=== PATIENT | female | born 1965 | race Caucasian/White ===

== ENCOUNTER 2021-05-26 07:14 | Emergency (ER) | payer BC, SELFPAY ==
[2021-05-26] VITALS (11 sets, daily range): BP systolic 113–151; BP diastolic 60–91; PULSE 71–98; RESP 12–20; TEMP 36.6; O2SAT 94–100
--- NOTE | ~2021-05-26 | CT_ITS ---
EXAMINATION: CT abdomen pelvis w con INDICATION: Abdominal pain TECHNIQUE: Computed tomographic images of the abdomen and pelvis were obtained after the administrati on of 100 cc of Omnipaque 350 intravenous contrast. The dose-length product (DLP) was 731.59 mGy-cm. Automated exposure control and iterative reconstruction technique were employed. COMPARISON: None available FINDINGS: The lung bases are clear. The heart size is normal. The liver, spleen, pancreas, gallbladde r, and adrenal glands are normal. The kidneys are unremarkable. There are midline skin keiko with a djacent stranding of the subcutaneous fat, consistent with recent surgery. A surgical anastomosis is present in left mid abdomen in the colon. There is a large volume of stool in the rectum. An approxim ately 6.5 x 2.9 cm hyperattenuating fluid collection is present in the presacral space. There is mild inguinal lymphadenopathy. No definite free intraperitoneal gas is identified. There is severe lower cervical spondylosis. IMPRESSION: 1. Postsurgical changes in the abdomen and pelvis with hyperattenuating presacral fluid collection, l ikely postoperative hematoma. 2. Large volume of stool in the rectum. 3. Mild bilateral inguinal lymphadenopathy, likely reactive. Reviewed, dictated and finalized at location A. IMPRESSION: 1. Postsurgical changes in the abdomen and pelvis with hyperattenuating presacr al fluid collection, likely postoperative hematoma. 2. Large volume of stool in the rectum. 3. Mild bilateral inguinal lymphadenopathy, likely reactive.
[2021-05-26] MEDS: diphenhydrAMINE HCl INJ 50 MG/ML VIAL 25 MG IV PUSH (07:51)
[2021-05-26] MEDS: ONDANSETRON INJ 4 MG/2 ML VIAL IV PUSH (07:51)
[2021-05-26] MEDS: methylPREDNISolone SOD SUCC 40 MG VIAL IV PUSH (07:51)
[2021-05-26] MEDS: FAMOTIDINE 20 MG/2 ML VIAL IV PUSH (07:51)
--- NOTE | 2021-05-26 08:16 | ED.GENADULT ---
HPI - General Adult General Chief complaint: Allergic Reaction Stated complaint: Hives Time Seen by Provider: 05/26/21 07:19 Source: patient History of Present Illness HPI narrative: Patient is a 56 y/o female complaining of hives with severe itching starting 3 days ago. She states that her rash is red and all over her body. She states that she has been taking Benadryl and Prednisone, which has not helped much. She has no difficulty with breath. She has poor appetite, nausea/vomiting and abdominal pain due to recent abdominal surgery. Related Data Home Medications Medication Instructions Recorded Confirmed diphenhydramine HCl [Benadryl] 25 mg PO Q6H PRN 05/26/21 prednisone 05/26/21 Allergies Allergy/AdvReac Type Severity Reaction Status Date / Time adhesive tape Allergy Blister Verified 05/26/21 07:23 Review of Systems Constitutional: Constitutional: Denies chills, Denies fever(s), Denies headache(s) and Denies weakness Eyes: Eyes: Denies blurry vision ENT: Denies headache(s) and Denies neck pain Cardiovascular: Cardiovascular: Denies chest pain and Denies dyspnea Respiratory: Respiratory: Denies cough and Denies dyspnea Gastrointestinal: Gastrointestinal: Reports abdominal pain, Denies diarrhea, Reports nausea and Reports vomiting Genitourinary: Genitourinary: Denies hematuria and Denies dysuria Musculoskeletal: Musculoskeletal: Denies back pain and Denies neck pain Integumentary/Breasts: Skin/Breast: Reports rash Neurologic: Denies headache(s) and Denies weakness [facility], [facility] Social History Social History Gender identity (if verbalized by the patient): Female Exam Const: General: no acute distress and well developed Orientation/consciousness: oriented to person, oriented to place, oriented to time and patient oriented x3 HENMT: Head: normocephalic Ears: external ears normal General nose exam: Normal external nose present Eyes: General: appearance normal, both eyes and all related structures Conjunctivae: conjunctivae normal Neck: Neck: normal visual inspection and full ROM Chest: Chest palpation & inspection: normal inspection of the chest and no tenderness Resp: Effort & Inspection: normal respiratory effort Auscultation: clear to auscultation bilaterally Cardio: Rate: regular rate Rhythm: regular rhythm GI: GI Palp: No abdominal tenderness and Yes Soft to palpation Skin: General skin exam: normal color and turgor normal Rashes: rashes noted (diffuse on back, scalpe, all 4 extremities) Wounds: wounds noted (abdominal incisions clean and intact) Neuro: General: oriented to person, oriented to place, oriented to time and patient oriented x3 Cognition (Neuro): normal cognition Extrem: General: normal to inspection, full ROM and no pedal edema Psych: Appearance: grossly normal Mental Status: mental status grossly normal Affect: normal affect Course Reevaluation(s) Reevaluation #1: Rechecked. Patient states that her hives are better. She is able to tolerate oral intake and her nausea is controlled. She feels comfortable with going home. Date: 05/26/21 Time: 13:05 Consultations Consultation #1: Discussed with Dr. Cat (surgery) at [place]. She states that patient can be discharged and follow up surgery clinic. If patient has intractable vomiting, they can transfer patient for admission. Date: 05/26/21 Time: 12:58 Vital Signs Vital signs: Vital Signs Temperature 36.6 C 05/26/21 07:17 Pulse Rate 98 05/26/21 07:17 Respiratory Rate 18 05/26/21 07:17 Blood Pressure 151/91 H 05/26/21 07:17 Pulse Oximetry 98 05/26/21 07:17 Temperature 36.6 C 05/26/21 07:17 Pulse Rate 76 05/26/21 13:32 Respiratory Rate 16 05/26/21 13:32 Blood Pressure 116/60 05/26/21 13:32 Pulse Oximetry 94 05/26/21 13:01 Medical Decision Making Vital Signs Vital Signs: Vital Signs Temperature 36.6 C 05/26/21 07:17 Pulse R
[2021-05-26 08:25] LABS: Basophils Absolute Auto 0.1 K/mm3 (0.0-0.1); Basophils Percent Auto 0.3 % (0.2-1.2); Eosinophils Absolute Auto 0.1 K/mm3 (0-0.3); Eosinophils Percent Auto 0.5 % (0-4.4); Hematocrit 42.4 % (37.0-47.0); Hemoglobin 14.1 g/dL (12.0-15.0); Immature Granulocyte Percent A 0.5 % (0-0.5); Lymphocytes Absolute Auto 1.86 K/mm3 (0.9-3.2); Lymphocytes Percent Auto 8.8 % (18.3-44.2); Mean Corpuscular HGB Conc 33.3 g/dl (32-36); Mean Corpuscular Hemoglobin 29.6 pg (26-34); Mean Corpuscular Volume 89.1 fl (80-100); Mean Platelet Volume 9.4 fl (7.4-10.4); Monocytes Absolute Auto 1.1 K/mm3 (0.1-0.6); Monocytes Percent Auto 5.2 % (2.6-8.5); Neutrophils Absolute Auto 17.9 K/mm3 (1.3-6.7); Neutrophils Percent Auto 84.7 % (45.5-73.1); Platelet Count Result 609 k/mm3 (150-375); Red Blood Count 4.76 M/mm3 (4.2-5.4); Red Cell Distribution Width 13.9 % (11.5-14.5); White Blood Count 21.1 K/mm3 (4.5-10.0)
[2021-05-26 08:41] LABS: Anion Gap 12 mmol/L (8-16); Blood Urea Nitrogen 12 mg/dL (7-17); Calcium 10.7 mg/dL (8.4-10.2); Carbon Dioxide 31 mmol/L (22-30); Chloride 90 mmol/L (98-107); Estimated CRCL calculation 90 ml/min; Estimated Glomerular Filt Rate > 60; Glucose 114 mg/dL (65-110); Sodium 133 mmol/L (137-145)
== END 2021-05-26 13:52 | disposition home or self-care (01) ==
PROVIDERS: Emergency Provider Emergency Medicine; PCP Internal Medicine
DX: L50.9 Urticaria, unspecified (principal); K91.0 Vomiting following gastrointestinal surgery
CPT/HCPCS: 36415; 74177; 80048; 85025; 96374; 96375; 99284; J1200; J2405; J2920; Q9967

== ENCOUNTER 2022-10-08 09:32 | Outpatient (CLI) | payer BC, SELFPAY ==
--- NOTE | ~2022-10-08 | XR_ITS ---
EXAMINATION: XR foot LT min 3V DATE: 10/08/2022 10:09 INDICATION: Left foot pain TECHNIQUE: Dorsoplantar, lateral, and oblique views of the left foot were obtained. COMPARISON: 03/13/2008 FINDINGS: Bone alignment is normal. There is no fracture. There is mild osteoarthritis of multiple in terphalangeal joints. A plantar calcaneal enthesophyte is noted. The soft tissues are unremarkable. IMPRESSION: 1. No acute osseous abnormality. Reviewed, dictated and finalized at location A. E DEGREASER
== END 2022-10-08 09:33 | disposition home or self-care (01) ==
PROVIDERS: PCP Internal Medicine; Visit Provider Podiatrist Foot & Ankle Surgery
DX: M79.672 Pain in left foot (principal)
CPT/HCPCS: 73630

== ENCOUNTER 2023-08-16 09:42 | Outpatient (CLI) | payer OTHER, SELFPAY ==
--- NOTE | ~2023-08-16 | XR_ITS ---
Left Knee Technique: AP, lateral, and sunrise views were obtained. Clinical History: Pain Findings: No fracture or dislocation is seen. Osseous alignment is anatomic. Minimal patellar spurrin g noted. Soft tissues are unremarkable. No joint effusion is seen. Impression: Minimal patellar spurring. Reviewed, dictated and finalized at location . Impression: Minimal patellar spurring.
== END 2023-08-16 09:43 | disposition home or self-care (01) ==
PROVIDERS: PCP Internal Medicine; Visit Provider Internal Medicine
DX: M25.762 Osteophyte, left knee (principal)
CPT/HCPCS: 73564

== ENCOUNTER → 2023-12-17 10:06 | Outpatient (CLI) | payer OTHER, SELFPAY ==
--- NOTE | ~2023-12-17 | XR_ITS ---
Clinical Indication: Cough PA and lateral views of the chest: Comparison: 03/19/2017 Findings: The lungs are clear, without evidence of focal consolidation or pleural effusion. Cardiome diastinal silhouette is within normal limits. Bones and soft tissues are unremarkable. Impression: Normal chest. Reviewed, dictated and finalized at [facility]. LE SLIDE MAKER Impression: Normal chest.
== END ==
PROVIDERS: PCP Nurse Practitioner Family; Visit Provider Nurse Practitioner Family
DX: J45.909 Unspecified asthma, uncomplicated (principal); M19.90 Unspecified osteoarthritis, unspecified site; Z76.89 Persons encountering health services in other specified circumstances
CPT/HCPCS: 71046

== ENCOUNTER 2024-02-28 08:14 | Outpatient (CLI) | payer OTHER, SELFPAY ==
[2024-02-28 09:09] LABS: Cholesterol 190 mg/dL (0-200); HDL Direct 91 mg/dL; Triglycerides 71 mg/dL (<150)
[2024-02-28 09:19] LABS: LDL Cholesterol Direct 77 mg/dL
[2024-02-28 09:33] LABS: Free T4 Free Thyroxine 1.15 ng/mL (0.78-2.19); Vitamin D 25 Hydroxy 54.4 ng/mL
[2024-02-28 10:15] LABS: Erythrocyte Sedimentation Rate 9 mm/hr (0-20)
[2024-02-28 10:16] LABS: Folic Acid 11.7 ng/mL (2.76->20)
[2024-02-29 14:28] LABS: Lyme Disease Ab (IgM), Blot NEGATIVE (NEGATIVE); Lyme Disease Ab(IgG), Blot NEGATIVE (NEGATIVE)
[2024-03-01 12:10] LABS: Collection Sample Venous
[2024-03-01 20:59] LABS: Mercury <5 mcg/L (<OR=10)
[2024-03-02 12:19] LABS: Vitamin B1 14 nmol/L (8-30)
== END 2024-02-28 08:15 | disposition home or self-care (01) ==
LOC: ANHLAB 08:16
PROVIDERS: PCP Nurse Practitioner Family; Visit Provider Nurse Practitioner Family
DX: T56.1X1A Toxic effect of mercury and its compounds, accidental (unintentional), initial encounter (principal); E56.9 Vitamin deficiency, unspecified; G63 Polyneuropathy in diseases classified elsewhere; E61.0 Copper deficiency; Z76.89 Persons encountering health services in other specified circumstances
CPT/HCPCS: 36415; 80061; 82306; 82525; 82607; 82746; 83655; 83735; 83825; 84425; 84439; 84443; 85652; 86617

== ENCOUNTER 2024-04-18 09:58 | Outpatient (CLI) | payer OTHER, SELFPAY ==
--- NOTE | 2024-04-18 13:37 | WPDPFTINT ---
PFT Procedure Performed PFT Procedure Performed Spirometry with Pre/Post Bronchodilator Plethysmography (Lung Vol) Diffusing Cap (DLCO) Flow Vol Loop PFT Interpretation This is a pulmonary function test with pre and post-bronchodilator spirometry, plethysmography and diffusing capacity. The test was performed and results interpreted in accordance with the 2019 and 2005 ATS/ERS Task Force guidelines respectively using the Global Lung Function Initiative-2012 reference equations. Patient demonstrated good effort and cooperation. Reproducibility criteria were met. The quality of the pre bronchodilator spirometry maneuver was Grade A and post bronchodilator spirometry maneuver was Grade A. Findings: Spirometry: The contour the inspiratory and expiratory flow tracing are normal. The pre bronchodilator FVC is 3.42 L, 93% predicted. The pre bronchodilator FEV1 is 2.75 L, 95% predicted. The pre bronchodilator FEV1: FVC ratio is 80%. The post bronchodilator FVC is 3.32 L, representing a 3% decrease. The post bronchodilator FEV1 is 2.81 L, representing a 2% increase. The post bronchodilator FEV1: FVC ratio is 85%. Plethysmography: The total lung capacity is 4.73 L, 83% predicted. The functional residual capacity is 2.28 L, 70% predicted. The residual volume is 1.22 L, 56% predicted. Diffusing capacity: The diffusing capacity unadjusted for hemoglobin and carboxyhemoglobin is 19.6, 84% predicted. The diffusing capacity adjusted for alveolar volume is 4.31, 101% predicted. Impression: The spirometry is normal without evidence of an obstructive abnormality. There is no significant improvement after inhaling a single dose of albuterol. The total lung capacity and functional residual capacity are normal with a decreased residual volume. This is an abnormal but nonspecific lung volume pattern. The diffusing capacity is normal. There are no prior studies for comparison
== END 2024-04-18 09:59 | disposition home or self-care (01) ==
PROVIDERS: PCP Nurse Practitioner Family; Visit Provider Allergy & Immunology
DX: R06.02 Shortness of breath (principal)
CPT/HCPCS: 94060; 94726; 94729

== ENCOUNTER 2025-03-05 07:59 | Outpatient (CLI) | payer OTHER, SELFPAY ==
--- OUTSIDE RECORDS SUMMARY | 2025-03-05 08:03 | XMS_ITS | Referral Summary ---
[facility] Address [address] [place] [address] Care Team Providers Care Coffee Brewer Name Role Phone Jeison Calloway MD Unavailable [phone] Margarito Moreno MD Unavailable [phone] Elaine Nunn DIE CASTING MACHINE OPERATOR Primary Care Provider [phone] Wil Mendez MD Unavailable [phone] Allergies Active Allergy Reactions Criticality Noted Date Comments Adhesive Hives Medium 05/07/2021 No Known Allergies Other (See comments) Low 019 Reaction: Medications acetaminophen (TYLENOL) 500 mg tablet Take 1 tablet (500 mg total) by mouth every 6 (six) hours as needed for pain 30 tablet 4 Active ondansetron ODT (ZOFRAN-ODT) 4 mg disintegrating tablet Take 1 tablet (4 mg total) by mouth every 8 (eight) hours as needed for nausea or vomiting 20 tablet 4 Active Active Problems Problem Noted Date Diagnosed Date SBO (small bowel obstruction) 05/31/2022 Small bowel obstruction 09/17/2019 Overview (09/18/2019): Added automatically from request for surgery [id number] Rectosigmoiditis 05/24/2012 Acute postoperative abdominal pain Immunizations Immunization Administration Dates Next Due Influenza, Quadrivalent, Spl it, Preservative Free, Intramuscular 09/21/2019 Social History Tobacco Use Types Packs/Day Years Used Date Smoking Tobacco: Never Smokeless Tobacco: Never Alcohol Use Standard Drinks/Week Comments Never 0 (1 standard drink = 0.6 oz pur e alcohol) AUDIT-C Answer Date Recorded Q1: How often do you have a drink containing alc ohol? Never 05/14/2021 Average Number of Drinks Not on file 021 Q3: How often do you have si x or more drinks on one occasion? Never 05/14/2021 Personal Safety Answer Date Recorded Have you ever been in or are you currently in a harmful physical or emotional relationship or is someone making you feel afraid or unsafe? Denies 08/17/2024 Comments No Sex and Gender Information Value Date Recorded Sex Assigned at Not on file Legal Sex Female 7:50 PM SLEEP TECH Gender Identity Female 05/08/2021 7:46 PM CDT Sexual Orientation Straight 05/08/2021 7: 56 PM CDT Last Filed Vital Signs Vital Sign Reading Time Taken Comments Blood Pressure 120/75 08/20/2024 9:19 AM CDT Pulse 78 08/20/2024 9:19 AM CDT Temperature 36.3 C (97.4 F) 08/20/2024 9:19 AM CDT Respiratory Rate 17 08/20/2024 9:19 AM CDT Oxygen Saturation 99% 08/20/2024 9:19 AM CDT Inhaled Oxygen Concentration - - Weight 95.3 kg (210 lb) 08/17/2024 11:15 AM CDT Height 170.2 cm (5' 7 ) 08/17/2024 11:15 AM CDT Body Mass Index 32.89 08/17/2024 11:15 AM CDT Plan of Treatment Not on file Insurance ROBBIE THOMAS PREFERRED ANTHEM ACCESS CHOICE ANTHEM ACCESS [employer] [facility] [employer] Advance Directives For more information, please contact: [phone] * Full Code (Latest Code Status on File) Date Activated Date Inactivated Comments 08/17/2024 8:56 AM 08/20/2024 2:22 PM * Full Code Date Activated Date Inactivated Comments 05/31/2022 12:49 PM 06/02/2022 2:35 PM * Full Code Date Activated Date Inactivated Comments 05/31/2022 7:02 AM 05/31/2022 12:49 PM * Full Code Date Activated Date Inactivated Comments 05/14/2021 9:41 PM 05/23/2021 3:23 PM * Full Code Date Activated Date Inactivated Comments 09/17/2019 4:41 PM 09/21/2019 4:14 PM Care Teams Coffee Brewer Relationship Specialty Start Date End Date Elaine Nunn NP [address] [place] [address] PCP - General Nurse Practitioner 08/17/24 Jeison Calloway MD [facility] 10/31/19 Margarito Moreno MD [address] [facility] [id number] [place] [address] Consulting Physician General Surgery 06/02/22 Wil Mendez MD [address] [facility] [phone] [place] [address] Consulting Physician Colon and Rectal Surgery 08/20/24
--- OUTSIDE RECORDS SUMMARY | 2025-03-05 08:03 | XMS_ITS | Data Portability ---
Author Organization [place] [facility] [employer], Main Office Address [address] [place] [address] Care Team Providers Care [facility] Stocker Name Role Phone AMANDASUSIEIN Primary Care Provider AMANDASUSIEIN Referring Provider [phone] Assessment Encounter Date Assessment Date Assessment LastModified by Organization Details LastModified Time 08/27/2023 08/27/2023 HPI: Is a 58-year-old female came in today for evaluation of her left knee pain. Twelve days ago she was going down some steps at home when she felt a pain and a pop type sensation in the anterior aspect of the knee. Knee became very sore after this. She had difficult time with stairs. She also had give-way episodes at times because of the knee. She has been taking ibuprofen 600 mg daily, she has done this long-term because of low back problems. Her symptoms at this point have improved quite a bit. Her pain at worst right now is a 3/10. She is able go up and down the steps 1 after the other now. She has been using an esck-zsu-hmzqsxh knee sleeve which she feels helps quite a bit as well. Patient had x-rays done from her primary care doctor at [facility]. I reviewed the images which show some very mild medial compartment osteoarthritis. Minimal patellofemoral changes. Physical exam: 58-year-old female she is 5 ft 7 and 218 lb she walks well without limp. She has a mild effusion in the left knee. Range of motion is from 0-135 degrees. Hip range of motion is full without discomfort. Mild tenderness over the mid medial joint line no posterior medial joint line tenderness. No tenderness over the lateral joint line. Mild to moderate pain with patellofemoral grind. She has normal quad strength and bulk. No edema in lower extremity. 2+ posterior artery pulse palpable. Impression: 58-year-old female who had anterior knee pain in the left knee. Symptoms are quickly improving. She does have some early osteoarthritis in the medial compartment but does not notice any symptoms in this area except when I am palpating it. Is only 12 days ago when she had this experience and started improved dramatically and I think it will continue to do this. She can continue with the xdgi-kaf-ybwlhhx knee sleeve on an as-needed basis. I did recommend she take the ibuprofen twice a day for the next week or 2 to try to quiet things down more. If her symptoms do not improve or if they worsen she will call otherwise we can see her back as needed. Not available 08/27/2023 13:13:28 10/06/2023 10/06/2023 HPI: Patient returns. I saw her a little more than a month ago for pain in the left knee. The time she had predominantly anterior knee pain with mild medial joint line tenderness to. She has been seeing a chiropractor and knee anterior aspect of the knee is doing better however the medial aspect is not. She has been taking ibuprofen 800 mg regularly for over 3 months. The chiropractor gave her a cortisone injection 6 days ago in the knee. Did improve her symptoms but has not taken all of them away. Patient has pain when she is standing and walking for on her feet for extended periods of time. She is having no symptoms of locking or catching in the knee. Physical exam: 58-year-old female alert pleasant. She is 5 ft 7 218 lb BMI is 34.1. She states she has gained 60 lb over the last several years. She has mild effusion in the left knee. Range of motion is from 0-135 degrees. There is moderate tenderness over the medial and posterior medial joint line. There is moderate pain with Radha's testing negative snapping clicking with Radha's. There is no pain with patellofemoral grind. No lateral joint line tenderness. Hip range motion is full without discomfort. She walks well without limp. Negative Brien's. Impression: 58-year-old female has mild medial compartment osteoarthritis on the x-rays. She has had continued symptoms for several months. She has not improved from anti-inflammatori es well as cortisone injections 6 days ago. She has also been doing treatments with a chiropractor as well. Other possibilities that she may have a medial meniscus tear causing her symptoms I have recommended obtaining MRI scan for thorough evaluation. Also the MRI will be helpful as it will delineate whether not this is meniscal or if she just has worse arthritis than what the x-rays are showing. We talked again about weight loss as the x-rays 60 lb that she has gained over the last year to certainly can be contributing to her symptoms if this is entirely arthritis and she understands. She is comfortable with the ibuprofen and thinks it is working well. We did discuss switching to a different anti-inflammatory but she declined. We will set up the MRI scan and see her back afterwards. 20 minutes was spent treatment patient more half of this in uzje-yu-uhca conversation Not available 10/06/2023 15:23:59 11/17/2023 11/17/2023 Impression: Patient had an insufficiency fracture of the medial tibial plateau subchondral bone on the MRI scan from 10/13/2024 but her medial tibial plateau tenderness has resolved. . She has moderate to moderately severe joint space narrowing on the recent standing AP and PA flexion start views. I have discussed with her that in all probability what initiated the problem was the radial tear of the medial meniscus posterior horn near the root. This resulted in sudden loss of the load sharing function meniscus which caused overload to the center of the medial tibial plateau due to the higher pressure in that area and this resulted in insufficiency stress fracture. This stress fracture was evident and acute 5 weeks ago but her symptoms have since dramatically improved. She states that she has lost weight in the past she lost 65 lb by walking 3 miles a day and dieting and unfortunately has put it back on. I recommended that she strive to lose the weight primarily by dieting as resuming daily distance walking is likely to exacerbate her knee symptoms. I recommended a course of physical therapy focusing on core strengthening hip strengthening hamstring quadriceps stretching and avoidance of quadriceps strengthening. She does have patellofemoral early arthritis. I think that her lateral knee pain is likely related to the patellofemoral joint. She did not have any lateral knee tenderness on exam today. No IT band tenderness. I have talked her about the option of a bone density test. She did have 1 about 10 years ago. People that have had ulcerative colitis are prone to developing osteoporosis due to malabsorption and her insufficiency fracture may be occluded that she has diminished bone density. We will order this for her. I will see her back in 1 month to assess her progress. 40 minutes were spent total care this patient more than half the time spent in aumy-qw-xzgz care. [email or web address] Not available 11/21/2023 15:54:50 01/13/2024 01/13/2024 The patient has pain in her right foot this seems to be localized around the area of a bony ossicle on the lateral portion the foot. I am not sure if this is causing her discomfort she has had no specific trauma or injury. She has changed her activities recently she has no longer walking for exercise and she is doing new exercises in therapy for her knee she thinks the new therapy has started to affect her right foot and she has had some left knee pain maybe she has been depending more on her right foot for support and favoring her left lower extremity. She is failed conservative measures otherwise. I did offer her oral prednisone she declined she states she will take xodc-ykt-wwwccuj ibuprofen or Aleve. We did talk about having her see her punchboard assembler once again to talk about maybe making adjustments to her shoe inserts they are a little over a year old they may need to be adjusted or at least have a re-evaluation by the punchboard assembler. She agreed. She will follow up with him I will see her back as needed she voiced understanding and agrees above plan she will call for any further problems difficulties or questions. She asked about getting back into walking for exercise I have advised her if she can tolerate it and her pain is improving with her knee and it does not aggravate her foot too much she could try to get back into normal activities. She will call for any further problems difficulties or questions. [email or web address] Not available 01/13/2024 12:28:17 Plan of Treatment Reminders Order Date Submit Date Provider Last Modified By Organization Details Last Modified Time Details Appointments None record ed. Lab None record ed. Referral None record ed. Procedures None record ed. Surgeries None record ed. Imaging XR, foot 024 01/13/20 24 [email or web address] [facility] [place], [facility] [facility] [address], [place], [address], 4 12:18:45 XR, knee 023 10/06/20 [email or web address] [facility] [place], [address] [facility] [address], [place], [address], 15:33:45 Medication Orders None record ed. Patient TargetsNo targets recorded. Patient Instructions Encounter Date Encounter Id Patient Instructions Last Modified By Organization Details Last Modified Time 08/12/2023 [id number] Left knee pain-G ERD -ulcerative colitis -obesity class one. Does need a mammogram. Apparently has had some blood work drawn by recent chiropractor. Will try to get copies of that before ordering anything further. Will obtain radiographic studies any in proceed accordingly.FDA recommendations of a influenza, RSV, COVID, pneumococcal immunizations strongly advised. Portions of the record may have been created with voice recognition software. Occasional wrong-word or ngial-l-eaip substitutions may have occurred due to the inherent limitations of voice recognition software. Read the chart carefully and recognize, using context, where substitutions have occurred. X-ray of the left knee. including weight bearing Next Appt: 6 Months Approximate Date: 02/08/2024 [place] [id number] Not available 08/12/2023 15:15:47 Reason for Referral None Reported. Results Created Date Observation Date Name Description Value Unit Range Abnormal Flag Note LastModifiedBy Organization Detail LastModifiedTime 08/16/2008/16/2023 XR, knee No observ ation record ed. [address], [place], [address], 08/16/2023 14:12:28 08/16/2008/16/2023 XR, knee No observ ation record ed. [place] [id number] [facility] [address], [place], [address], 08/16/2023 14:12:45 08/18/20 MAMMO , scree varinder, digit al, bilat eral [facility] [address] [place] [address] Patien t Name: AMY VALERA EN Access ion #: [id number] Sex: F : 1964 5 Dictat ed By: Milagros Bergman Attend ing Physic sophia: YAHAIRA PETERSEN CE Orderi Physic sophia: YAHAIRA PETERSEN CE Exam Date: 2022 10:26 AM Exam Name: MG NAVARRETE L JULIANA BILAT SCREEN Admitt ing Diagno sis(es ): CLINIC AL HISTOR Y: Screen ing COMPAR FENG STUDY: 017 TECHNI QUE: Using a full field digita l 2D mammog christin unit CC and MLO views of both breast s are perfor med. FINDIN GS: BREAST COMPOS ITION: There are scatte red areas of fibrog landul ar densit y in the bilate ral breast s. No suspic ious masses , isabela ectura l distor tion, asymme tries or suspic ious calcif icatio ns in both breast s. IMPRES KATHERINE: No eviden ce of malign paxton. Recomm end annual mammog becky. BIRADS : 2 - Benign Electr onical ly Signed by: Milagros Bergman at 2022 11:45: 22 AM Page [address] (Imaging) [address] [place], [address], 08/19/2023 14:42:37 09/03/20 23 04/24/2023 lab* No observ ation record ed. [email or web address] Not Available 2022 07:44:27 10/06/20 23 XR, knee No observ ation record ed. [email or web address] [facility] [place] [address], [place], [address], 10/06/2023 15:20:57 10/14/20 23 MRI, knee, w/o contr ast [facility] [address] [place] [address] Patien t Name: AMY VALERA EN Access ion #: [id number] Sex: F : 1964 1 Dictat ed By: Snehal Bui ell Attend ing Physic sophia: BINDU CHANG Orderi ng Physic sophia: BINDU CHANG Exam Date: 2022 13:54 PM Exam Name: MRI KNEE LT WO Admitt ing Diagno sis(es ): CLINIC AL INFORM ATION: Left knee pain. COMPAR FENG: None. TECHNI ANNETTE INFORM ATION: Multis equenc e multip lanar MRI images of the left knee were obtain ed withou t contra st. FINDIN GS: Crucia te ligame nts: ACL and PCL are intact and otherw ise unrema rkable . Extens or mechan ism: Mariam ceps mechan ism and patell ar tendon are intact . Mild edema and trace fluid in the prepat ellar bursa. Collat eral ligame nts: Medial and latera l collat eral ligame nts are intact and otherw ise unrema rkable . Menisc i: Comple x tear at the rn procedures ior horn extend ing to the juncti on of the rn procedures ior horn and rn procedures ior root attach ment with longit udinal and radial compon ents. The radial tear measur es up to 5 mm in transv erse dimens ion. There is extrus ion of the body of the medial menisc us approx imatel y 4 mm beyond the medial tibial margin , abutti ng the MCL. Latera l menisc us is intact . Cartil age: Modera te chondr al fissur ing/fi brilla tion in the weight bearin g zone of the medial femora l condyl e with chondr al thinni ng and frayin g in the medial tibial platea u. Full-t hickne ss or near full-t hickne ss chondr al loss in the medial patell ar facet with mild subcho ndral cystic change . Deep chondr al fissur ing/fi brilla tion in the centra l trochl ea with adjace nt subcho ndral cystic change . Bones: Mild to modera te subcho ndral edema in the medial tibial platea u consis tent with contus ion with small subcho ndral fractu re. Joint fluid: Small to modera te joint effusi on. Small amount of fluid from the joint protru ding into the inferi or aspect of Hoffa' s fat pad at the level of the interc ondyla r region . Other: No other signif icant findin gs. IMPRES KATHERINE: Page 1 [facility] [address] [place] [address] [phone] Patien t Name: AMY VALERA EN Access ion #: [id number] Sex: F : 1964 1 Dictat ed By: Snehal quiles Attend ing Physic sophia: CHARLENE RUANO Physic sophia: BINDU CHANG Exam Date: 2022 13:54 PM Exam Name: MRI KNEE LT WO Admitt ing Diagno sis(es ): 1. Comple x medial menisc al tear with radial and longit udinal compon ents and extrus ion of the body of the medial menisc us. 2. Chondr omalac ia in the latera l and patell ofemor al compar tments with grade 3-4 change s as descri bed above. 3. Subcho ndral edema in the medial tibial platea u, likely contus ion with small subcho ndral fractu re. 4. Additi onal findin gs as detail ed above. Electr onical ly Signed by: Snehal quiles at 2022 14:23: 38 PM Page 2 [email or web address] [facility] (Imaging) [address] [place] [address], [address], 10/14/2023 17:21:48 12/29/19 24 DEXA, axial skele ton [facility] [address] [place] [address] Patien t Name: AMY VALERA EN Access ion #: [id number] Sex: F : 1964 8 Dictat ed By: Jovanny Mcintyre ms Attend ing Physic sophia: HADLEY CURIEL ng Physic sophia: HADLEY CURIEL Exam Date: 2023 08:05 AM Exam Name: XR DEXA AXIAL/ HIP/PE LVIS/S ROCHELLE Admitt ing Diagno sis(es ): PROCED URE: DEXA SCAN INDICA TION: Age-re lated osteop orosis . TECHNI QUE: Bone densit ometry of the lumbar spine and bilate ral hips was perfor med on a [employer] c unit using dual energy x-ray absorp tiomet ry (DEXA) . COMPAR FENG: None BONE DENSIT Y REPORT : The collar fuser images are limite d for evalua tion of fine bony detail . BONE DENSIT Y REPORT : Bone minera l densit y (BMD) AP SPINE (L1-L4 ) BMD: 1.1-0 (Grams /cm2). T Score: -0.6 LEFT FEMORA L NECK BMD: 0.904 (Grams /cm2). T Score: -1.0 LEFT HIP TOTAL BMD: 0.892 (Grams /cm2). T Score: -0.9 RT FEMORA L NECK BMD: 0.904 (Grams /cm2). T Score: -1.0 RT HIP TOTAL BMD: 0.873 (Grams /cm2). T Score: -1.1 TOTAL BILAT HIP AV.883 (Grams /cm2). T Score: -1.0 10 YEAR FRACTU RE RISK* Not provid ed. IMPRES KATHERINE: Using the World Health Organi zation (WHO) classi ficati on, bone minera l densit y is: Osteop enia. Page 1 [facility] [place] [address] Patien t Name: AMY VALERA EN Access ion #: [id number] Sex: F : 1964 8 Dictat ed By: Jovanny Mcintyre ms Attend ing Physic sophia: CONCEPCIÓN [facility]UE[facility] Physic sophia: HADLEY CURIEL Exam Date: 2023 08:05 AM Exam Name: XR DEXA AXIAL/ HIP/PE LVIS/S ROCHELLE Zapata ing Diagno sis(es ): ------ ------ ------ ------ ------ ------ ------ ------ ----- *FRAX versio n 3.08. Fractu re probab ility calcul ated for an untrea theresa patien t. Fractu re probab ility may be lower if the patien t has receiv ed treatm ent. T-scor e: compar feng by standa rd deviat ion (SD) to a young adult popula tion, matche d for sex and ethnic ity (used for postme nopaus al women and men >50 years) and classi fied by WHO criter ia. -1.0: normal <-1.0 to >-2.5: osteop enia -2.5: osteop orosis -2.5 plus fragil ity fractu re: severe osteop orosis Z-scor e: compar ed by SD to an age, sex, and ethnic ity popula tion (used for premen opausa l women, men <50 years, and childr en instea d of T-scor e WHO criter ia 4) <-2.0: below expect ed range/ low bone densit y for age, and a cause should be sought . All treatm ent decisi ons requir e clinic al judgme nt and consid eratio n of indivi dual patien t factor s, includ ing patien t prefer ences, comorb iditie s, previo us drug use and risk factor s not captur ed in the FRAX model (for exampl e vitami n D defici ency, falls, frailt y, increa sed bone turnov er, interv al signif icant declin e in BMD). Electr onical ly Signed by: Jovanny Mcintyre ms at 2023 08:40: 50 AM Page 2 [email or web address] [facility] (Imaging) [address] [place], [address], 12/29/2023 11:38:13 12/29/19 24 DEXA, axial skele ton [facility] [address] [place] [address] Patien t Name: AMY VALERA EN A Access ion #: [id number] Sex: F : 1964 8 Locati on: RA2 Attend ing Physic sophia: HADLEY CURIEL Orderi ng Physic sophia: HADLEY CURIEL Exam Date: 12/29/19 8:05 AM Exam Name: XR DEXA AXIAL/ HIP/PE LVIS/S PINE Admitt ing Diagno sis(es ): RADIOL OGY REPORT - FINAL EXAM: XR DEXA AXIAL/ HIP/PE LVIS/S PINE HISTOR Y: age relate d osteop orosis 58-yea r-old female with osteop orosis screen ing. COMPAR FENG: None availa ble. TECHNI QUE: Dual energy x-ray of absorp tion examin ation of the bilate ral hips and lumbar spine was perfor med in AP projec tion. FINDIN GS: Lumbar Spine (L1-L4 ): The mean bone minera l densit y is 1.120 g/cm2 hydrox yapati te, correl ating with a T-scor e of -0.6. Bilate ral hips: The mean bone minera l densit y is 0.883 g/cm2 calciu m hydrox yapati te, correl ating with a T-scor e of -1.0. Page 1 of 2 [facility] t Name: AMY VALERA EN A Access ion #: [id number] Sex: F : 1964 8 Exam Date: 12/29/19 8:05 AM Exam Name: XR DEXA AXIAL/ HIP/PE LVIS/S PINE Admitt ing Diagno sis(es ): IMPRES KATHERINE: 1. The patien t's lumbar spine T-scor e is consis tent with normal bone minera l densit y overal l. It should be noted that the BMD at L2 is consis tent with osteop enia. 2. The patien t's bilate ral hip T-scor e is consis tent with normal bone minera l densit y overal l. It should be noted that the BMD of the right hip is consis tent with osteop enia. Accord ing to the World Health Organi zation , T-scor e values greate r than -1.0 are normal , values betwee n -1.0 and -2.5 are catego rized as osteop enia, T-scor e of -2.5 or more are catego rized as osteop orosis . Create d and electr onical ly signed by: Antonio treadwell MD Signed Date: 12/29/19 8:40 AM (CT) Dictat ed by: Antonio treadwell MD (CT) (CT) Page 2 of 2 [facility] (Imaging) [address] [place], [address], 12/29/2023 11:38:13 01/13/20 24 XR, foot No observ ation record ed. [email or web address] [facility] [place] [address], [place], [address], 01/13/2024 12:18:44 Result Notes None recorded. Problems Name Problem SNOMED Code Status Onset Date Resolution Date Notes Provider Name and Address Organization Details Recorded Time Insomnia 966088414 Active Not Available [facility] 3 13:53:05 Asthma 926739321 Active 2016 Not Available [facility] 3 13:53:05 [place] - lesion 414259533 Active Not Available [facility] 3 13:53:05 Congenital pes planus 64544192 Active 2021 Not Available [facility] 3 13:53:05 Gastroesop hageal reflux disease 472036122 Active 2016 Not Available [facility] 3 13:53:05 Pain in left foot 7740839603554 07 Active 2021 Not Available [facility] 3 13:53:05 Arthritis 6473217 Active 2021 Not Available [facility] 3 13:53:05 Porokerato sis 254364994 Active 2021 Not Available [facility] 3 13:53:05 Chronic sinusitis 93216706 Active 2016 Not Available [facility] 3 13:53:06 Ulcerative colitis 51569296 Active Not Available [facility] 3 13:53:06 Neck pain 29437192 Active Not Available [facility] 3 13:53:06 Herniation of nucleus pulposus 18212328 Active Not Available [facility] 3 13:53:06 Pain of left knee joint 4370049945947 07 Active 2022 Sampson Petersen MD [address], [place], [address] , [facility] 3 15:04:54 Obese class I 9482181950943 07 Active 2022 Sampson Petersen MD [address], [place], [address] , [facility] 3 15:12:45 Pain of right knee joint 0037769292575 00 Active 2022 Sonia Hernandez RMA null, [place] [facility] 3 11:05:42 Osteoarthr itis of left knee joint 5812009156235 09 Active 2022 Sonia Hernandez RMA null, [place] [facility] 3 14:44:35 Acute bronchitis 58905756 Active 2023 Sampson Petersen MD [address], [place], [address] , [facility] 4 12:59:53 Osteoporos is 01580405 Active 2023 Sadie Contreras CMA null, [place] [facility] 4 16:25:48 Pain in right foot 1418226335316 07 Active 2023 Liliana Salguero CONSUMER LOAN OFFICER null, [place] [facility] 4 10:50:58 Problem Notes None recorded. Procedures Surgical History None recorded. Imaging Results Imaging Date Name Status LastModified by Organiz ation Details LastModified Time 08/16/2023 XR, knee completed [email or web address] [facility] [address], [place], [address], 08/16/2023 14:12:28 08/16/2023 XR, knee completed [email or web address] [facility] [address], [place], [address], 08/16/2023 14:12:45 08/18/2023 MAMMO, screening, digital, bilateral completed [email or web address] [facility] (Imaging) [address] [place], [address], 08/19/2023 14:42:37 04/24/2023 lab* completed [email or web address] Information no t available 09/04/2023 07:44:27 10/06/2023 XR, knee completed [email or web address] [facility] [place] [address], [place], [address], 10/06/2023 15:20:57 10/14/2023 MRI, knee, w/o contrast completed [facility] (Imaging) [address] [place], [address], 10/14/2023 17:21:48 12/29/2023 DEXA, axial skeleton completed [facility] ([facility]) [address] [place], [address], 12/29/2023 11:38:13 12/29/2023 DEXA, axial skeleton completed [email or web address] [facility] (Imaging) [address] [place], [address], 12/29/2023 11:38:13 01/13/2024 XR, foot completed [email or web address] [facility] [place] [address], [place], [address], 01/13/2024 12:18:44 Procedure Notes None recorded. Medical Equipment None Reported. Medications Name Sig Start Date Stop Date Status Note LastModified by Organization Details LastModified Time cyclobenzap rine 10 mg tablet Take 1 tablet three times daily active Not Available Not Available No t Available amoxicillin 500 mg capsule Take 1 capsule 3 times a day by oral route for 10 days. 08/12 completed Not Available Not Available Not Available Augmentin 875 mg-125 mg tablet Take 1 tablet every 12 hours by oral route. 02/05 completed Not Available Not Available Not Available Tylenol-Cod eine #4 300 mg-60 mg tablet Take 1 tablet every 6 hours by oral route. active Not Available Not Available No t Available prednisone 10 mg tablet TAKE 1 TABLET BY MOUTH TWICE DAILY FOR 5 DAYS 08/12 completed Not Available Not Available Not Available Protonix 40 mg tablet,yao yed release Take 1 tablet every day by oral route. 08/12 completed Not Available Not Available Not Available ammonium lactate 12 % lotion APPLY LOTION TOPICALLY TO AFFECTED AREA ONCE DAILY DIRECTED 08/12 completed Not Available Not Available Not Available azithromyci n 250 mg tablet TAKE 2 TABLETS BY MOUTH ON DAY 1, AND THEN TAKE 1 TABLET BY MOUTH ONCE A DAY ON DAY 2 THROUGH DAY 5 11/17 completed Not Available Not Available Not Available benzonatate 200 mg capsule TAKE 1 CAPSULE BY MOUTH THREE TIMES DAILY active Not Available Not Available No t Available Medrol (Tanner) 4 mg tablets in a dose pack USE DIRECTED 09/24 completed Not Available Not Available Not Available prednisone 20 mg tablet TAKE 1 TABLET BY MOUTH ONCE DAILY 08/12 completed Not Available Not Available Not Available prednisone 5 mg tablet TAKE DIRECTED FROM INSTRUCTI ONS FROM DOCTOR 08/12 completed Not Available Not Available Not Available promethazin e 6.25 mg-codeine 10 mg/5 mL syrup Take 5 ML EVERY 6 HOURS by oral route PRN for cough active Not Available Not Available No t Available Sylva 3 120 mg-180 mg-1000 mg capsule Take by oral route. active Not Available Not Available No t Available folic acid 400 mcg tablet Take 1 tablet every day by oral route. 2016 active Not Available Not Available Not Avai lable Zantac 150 mg tablet Take 1 tablet every day by oral route. 08/12 completed Not Available Not Available Not Available amoxicillin 875 mg tablet TAKE 1 TABLET BY MOUTH EVERY 12 HOURS FOR 10 DAYS 08/12 completed Not Available Not Available Not Available baclofen 10 mg tablet Take 1 tablet 4 times a day by oral route. 08/12 completed Not Available Not Available Not Available cephalexin 500 mg capsule Take 1 capsule every 6 hours by oral route. 08/12 completed Not Available Not Available Not Available Levaquin 500 mg tablet Take 1 tablet every 24 hours by oral route. active Not Available Not Available No t Available albuterol sulfate HFA 90 mcg/actuati on aerosol inhaler INHALE 2 PUFFS BY MOUTH EVERY 4 HOURS NEEDED 08/12 completed Not Available Not Available Not Available Ambien 5 mg tablet Take 1 tablet every day by oral route. active Not Available Not Available No t Available zolpidem ER 12.5 mg tablet,exte nded release,mul tiphase TAKE ONE TABLET BY MOUTH AT BEDTIME 08/12 completed Not Available Not Available Not Available folic acid 09/24 completed Not Available Not Available Not Available Sudafed liquid 4tsp daily 09/24 completed Not Available Not Available Not Available coconut oil active Not Available Not A vailable Not Available Zyrtec liquid daily 09/24 completed Not Available Not Available Not Available apple cider vinegar active Not Available Not Available Not Available Symbicort 160 mcg-4.5 mcg/actuati on HFA aerosol inhaler INHALE 2 PUFFS BY MOUTH TWICE DAILY (RINSE MOUTH AFTER USE) 08/12 completed Not Available Not Available Not Available Mucinex 1,200 mg tablet, extended release Take by oral route. 2016 active Not Available Not Available Not Avai lable cetirizine 1 mg/mL oral solution Take 10 mL every day by oral route. 11/17 completed Not Available Not Available Not Available Osteo Bi-Flex 09/24 completed Not Available Not Available Not Available magnesium 400 mg (as magnesium oxide) capsule Take by oral route. active Not Available Not Available No t Available biotin 10,000 mcg-keratin 100 mg tablet Take 1 tablet every day by oral route. 2016 active Not Available Not Available Not Avai lable glucosamine 467 mg-chondroi tin [facility] [place] no.6 438 mg-manganes 0.7 mg capsule Take 2 capsules every day by oral route. 2016 active Not Available Not Available Not Avai lable Vitals Date Recorded Body height Body mass index (BMI) Body weight Heart rate Body temperature Oxygen saturation Oxygen saturation in Arterial blood by Pulse oximetry Systolic blood pressure Diastolic blood pressure Provider Name and Address Organization Details Last Updated DateTime 171.45 cm 33.8 kg/m2 39072.7 3 g 64 /min 97 [degF] 98 % 98 % 118 mm[Hg] 74 mm[Hg] Camilla Oswald [facility] 14:55:45 Date Recorded Body height Body mass index (BMI) Body weight Provider Name and Address Organization Details Last Updated DateTime 08/27/2023 170.18 cm 34.1 kg/m2 80206.14 g Sonia Hernandez [email or web address] 08/27/2023 11:52:58 Date Recorded Body height Provider Name an d Address Organization Details Last Updated DateTime 10/06/2023 170.18 cm Sonia Hernandez [email or web address] 10/06/2023 14:43:56 Date Recorded Body height Provider Name an d Address Organization Details Last Updated DateTime 11/17/2023 170.18 cm Sonia Hernandez [email or web address] 11/17/2023 09:07:34 Date Recorded Body height Body mass index (BMI) Body weight Provider Name and Address Organization Details Last Updated DateTime 01/13/2024 172.72 cm 30.4 kg/m2 06384.19 g DANIELA AlexanderA [facility] 01/13/2024 10:50:21 Social History None recorded. Functional Status Question Answer Note LastModified by Organization D etails LastModified Time What is your level of alcohol consumption? None [email or web address] Information not available 08/27/2023 Mental Status None recorded. Family History Nothing Reported Notes:Mother living 76 good health Father living 75 SVT One sister living and in good health Medical History Condition Response NERVE DISEASE N BLINDNESS N RHEUMATIC FEVER N KIDNEY STONES N BLADDER PROBLEMS N MRSA N OTHER # 1 N POLIO N LUNG DISEASE/DISORDER N HISTORY OF DRUG ABUSE N RADIATION / CHEMOTHERAPY N COPD N Other # 2 N BLOOD DISEASES N EAR OR HEARING PROBLEMS N MUMPS N SHINGLES N BOWEL PROBLEMS N DEPRESSION (INCLUDING POST ) N FAILED BACK SYNDROME N STROKE/TIA N ULCERS N BENIGN PROSTATIC HYPERPLASIA N MEASLES N HYPOTENSION N MYOCARDIAL INFARCTION N OBESITY N GERD/NAUSEA N ANEURYSM N URINARY/BLADDER/KIDNEY PROBLEMS N CORONARY ARTERY DISEASE (CAD) N Do you have Advance directive? N ADDICTION CONCERNS N Impotence N ENDOMETRIOSIS N USE OF BLOOD THINNERS N SKIN PROBLEMS N GASTROINTESTINAL DISORDER N PERIPHERAL VASCULAR DISEASE N MUSCLE,JOINT OR BONE PROBLEMS N GASTROINTESTINAL BLEEDING N BLOOD CLOTS N ASTHMA N CATARACTS N Abdominal Pain N ERECTILE DYSFUNCTION N ARTERIAL INSUFFICIENCY N VARICOSITIES N GI PROBLEMS N Low Testosterone N INFERTILITY N AIDS/HIV N CHEMOTHERAPY / RADIATION N LIVER DISEASE N MALE HYPOGONADISM N HYPERTENSION N Deficiency N TOURETTE'S N ANXIETY DISORDER N BLOOD TRANSFUSION N ANEMIA/BLOOD DISORDER N CHRONIC EAR INFECTIONS N TUBERCULOSIS N GLAUCOMA N FOOT PROBLEM N DIVERTICULITIS N SLEEP APNEA N CHICKENPOX N ALLERGIES/HAYFEVER N BACK INJECTIONS N INFECTIOUS DISEASE N PROSTATE N HEART ARRHYTHMIA N ESRD N INSOMNIA N HIGH CHOLESTEROL / HYPERLIPIDEMIA N EYE PROBLEMS N HYPERTHYROIDISM N PVD N EDEMA N CHRONIC PAIN SYNDROME N HYPOTHYROIDISM N CONSTIPATION N CAROTID BLOCKAGE N BACK / NECK PROBLEMS Y HAVE YOU BEEN HOSPITALIZED OR SEEN IN [facility] IN THE PAST YEAR ? N ATHEROSCLEROSIS N BREAST PROBLEMS N DIALYSIS N POLYCYSTIC OVARIES N ECZEMA N OSTEOPOROSIS N ARTHRITIS N NO SIGNIFICANT PAST MEDICAL HISTORY N APPENDICITIS N DIABETES, TYPE N BAD TEETH N VON WILLIBRAND'S DISEASE N ENT N HEARTBURN / REFLUX N GI N AUTISM SPECTRUM DISORDER (ASD) N POST LAMINECTOMY SYNDROME N HEPATITIS / LIVER DISEASE N GOUT N SLEEP DISORDER N ALZHEIMER'S DISEASE N Brain Problems N DEMENTIA N HERPES N SEIZURES/EPILEPSY N HEADACHES/MIGRAINES N VASCULAR DISEASE N PACEMAKER N DIZZINESS N HEART DISEASE/HEART PROBLEMS N KIDNEY DISEASE N MULTIPLE SCLEROSIS N NEUROPSYCHOLOGICAL N CANCER: SPECIFY N CARDIAC ARRHYTHMIA N ATRIAL FIBRILLATION N Gall Stones N PULMONARY EMBOLISM N AUTOIMMUNE DISEASE N Gynecological HistoryNo gynecological history recorded. Obstetrics History GPAL:G 0 P 0 0 0 0 Immunizations Vaccine Type Date Status Note Provider Nam e and Address Organization Details Recorded Time Influenza, split virus, quadrivalent, PF 09/24/2017 completed Not Available [facility] 13:55:23 Past Encounters Encounter ID Performer Location Encounter Start Date Encounter Closed Date Diagnosis/Indication Diagnosis SNOMED-CT Code Diagnosis ICD10 Code Diagnosis Note [id number] [facility] [place] [address] [place] [address] 03/19/2022 00:00:00 03/20/2022 11:16:16 [id number] Teofilo Knowles DPM _ATHENA_M IGRATION_ DEFAULT_1 _1 , 09/21/2022 00:00:00 09/21/2022 20:16:09 [id number] Teofilo Knowles DPM [facility] [place] [address] [place] [address] 11/05/2022 00:00:00 11/05/2022 10:41:27 [id number] Sampson Petersen MD [facility] Internal Med [place] [address] [facility] [address] [place] [address] 08/12/2023 14:50:57 08/12/2023 17:14:06 Gastroesophageal reflux disease 298526098 K21.9 Ulcerative colitis 82367 004 K51.80 Pain of le ft knee joint 3634312349 97689 M25.562 Obese class I 8949236116 17750 E66.9 [id number] Hadley Kim MD [facility]o [place] [address] [place] [address] 08/27/2023 10:32:26 08/27/2023 13:17:30 Pain of left knee joint 1003305097 32600 M25.437 [id number] Hadley Kim MD [facility] [place] [address] [place] [address] 10/06/2023 14:40:57 10/06/2023 15:33:44 Osteoarthritis of left knee joint 0913552768 62624 M17.12 Pain of le ft knee joint 7224409993 20941 M25.555 [id number] Hadley Kim MD [facility] [place] [address] [place] [address] 11/17/2023 09:02:54 11/22/2023 11:34:41 Pain of left knee joint 7956205323 33136 M25.160 [id number] Antonio Chairez MD [facility] [place] [address] [facility] [address] [place] [address] 01/13/2024 10:39:54 01/13/2024 11:24:32 Pain in right foot 6222336515 84269 M79.671 Health Concerns Section Related Observation LastModified by Organization Detai ls LastModified Time None Recorded Concern Status LastModified by Organization Details LastModified Time None Recorded Advance Directives Directive None Recorded Payers Encounter Date Sequence Insurance Name Policy Number Policy Fiore Covered Member ID Ifore Member ID Guarantor Name 08/12/2023 1 [employer] [id number] Angel Shane Schuyler [id number] Shae Payan 08/27/2023 1 [employer] [id number] Angel Shane Schuyler [id number] Shae Payan 10/06/2023 1 [employer] [id number] Angel Mtzon [id number] Shae Payan 11/17/2023 1 [employer] [id number] Angel Shane Schuyler [id number] Shae Payan 01/13/2024 1 [employer] [id number] Angel Mtzon [id number] Shae Payan Notes Date Note Type Note Provider Name and Address Organization Details Recorded Time text/html Patient Name: Shae Mcknight Of Service: July ( 08.12.2023 ): 1965 Age: 58 Vital Signs:Blood Pressure: Sitting Rt. Arm 118/74Pulse: Sitting 64 /min and RegularRespiratory Rate: 12Height 67.5 in or 1.7 mWeight 219 lb or 99.3 kgBMI 33.8Temperature: 97 F or 36.1 CPulse Oximetry: 98 % at rest on no oxygen Chief Complaint: Addressed in HPI Problems or conditions discussed in the HPI were the only ones reviewed during the encounter.Only social and family history addressed in the HPI were reviewed during this encounter. Attendant(s): NoneConstitutional and Systemic Symptoms:none Medication Reconciliation: from medication list. History of Present Illness #1. Playing a problems with the left knee particular with popping snapping in the upper portion of the kneecap. Denies any history of any actual swelling. There has been no specific injury although the patient has been having some difficulty in walking and has at times notice the knee one any give-way. Denies any history of any other systemic complaints. Is of value in the obese side but not any thing that is morbidly obese. At of no other associated joint abnormalities noted there is no instability the joint noted on physical exam.: #2. Hx of esophageal reflux currently stable. Hx of Complications: none The severity, duration and intensity of symptoms have improved. Frequency: most meals Treatment consists medications taken on no regular basis. Current therapy includes no medication. There has been no nausea, eructation, vomiting, hematemesis, dysphagia, velopharyngeal insufficiency and odynophagia. No change in he frequency or intensity of symptoms. Has had no melena. Has had no hematemesis. Discuss the possibility of trying to reduce the frequency of the use of any PPI inhibitors or H2 antagonist to see if symptoms can be controlled with last intensive therapy #3. Hx of inflammatory bowel disease in the form of ulcerative colitis and has remained stable. No interval complaints of any change in frequency or consistency of stool. No hematochezia or blood in the stool. No cutaneous drainage. No fever, chills, weight loss or other constitutional symptoms. Current medication:None. #4. Hx of obesity. Currently Class 1 Obesity BMI 30-34.99. Has tried numerous dietary support and supplements with no benefit. Instructed on the health consequences of the obese status particularly cancer - diabetes and heart disease. Discussed new modalities of weight loss including GLP-1 medications that are used to treat diabetes. Potential candidate for bariatric surgery: No. Wishes to be evaluated by Dietary: No and was offered to be evaluated and instructed by fern gatherer on weight loss diet.Medication List Reviewed and Reconciled 08/12/2023Zantac 150 MG (TABLET - ORAL) DailyMucinex 1200 MG Two Every DailyGlucosamine Chondrotin Sulfate Two Tablets Every DayAmbien Cr 12.5 MG (TABLET, EXTENDED RELEASE - ORAL) One HsSymbicort 0.16 MG/INH-0.0045 MG/INH (AEROSOL, METERED - INHALATION) Two Puffs BidProair Hfa 0.09 MG /INH (AEROSOL, METERED - INHALATION) Two Puffs QidSudafed Liquid 4 Tsp DailyZyrtec 5 MG/5 ML (SYRUP - ORAL) DailyProtonix 40 MG (TABLET, DELAYED RELEASE - ORAL) One DailyFolic Acid One DailyVaccination and [id number] InfluenzaSurgical HistoryLumbar Laminectomy, Lumbar Laminectomy, Colon Resection, Ileostomy, Total Colectomy, IleostomyPreventative Testing Confirmed by Our Myfuonu3804/02/2017 BLOOD SUGAR 94 MG/DL N004/02/2017 ALBUMIN 4.4 G/DL N007/24/2013 MAMMOGRAM 07/24/2014Social HistoryDoes not smoke or drinkFamily HistoryMother living 83 HTN GERDFather living 75 Afib,HTN Type 2 DM,IDPMN pancreasOne sister living and in good health Sampson Petersen MD [address] [facility], [facility] [address], [place], [address], [facility] [employer] 08/12/2023 15:16:04 4 text/html patient returns. She was seen on 10/06/2023 for her left knee and saw Donald Mena. She is complaining of severe pain over the medial tibial plateau the left knee. She has been doing much better over the last 1-2 weeks and states she has had no pain actually for the last 1-2 weeks. She occasionally feels pain laterally. She has been taking ibuprofen 800 mg 3 times a day Which she has been taking for approximately 10 years mainly for her back. I have discussed the risk of having kidney problems. She does have regular blood work and had recent blood work. She had a cortisone shot September 30, 2023 at her chiropractor's office. She was not absolutely certain was a cortisone shot thought maybe it was a local anesthetic injection only she is not clear on that. She wonders whether her problems with her left knee may have been precipitated by favoring the right leg with her left since the right leg is weaker. She cannot do a toe raise on the right side. I am not clear on whether her weakness is due to neurologic weakness of of the gastrocsoleus or related to severe fallen arch on that side. I reviewed her MRI images. There is an area of full-thickness cartilage loss medial and apex of the patella. There is a distinct insufficiency low signal fracture line 3 mm under the medial tibial plateau subchondral bone with severe edema around this area. she also has a radial tear of the posterior horn of the medial meniscus close to the root. The MRI scan was performed on 10/13/2023 now 5 weeks ago. MRI was reviewed in detail with the patient. She had Stork view x-rays from October 06 that showed narrowing of medial compartment joint space to 3 mm on the AP Stork view. Patient's history is significant for 2 prior back surgeries. These were done 3 weeks apart in 2001. She also has had multiple abdominal surgeries due to Ulcerative colitis. Her 1st surgery required an ileostomy and then she had a reversal and subsequent to that she has had 2 bowel blockages all requiring surgeries 6 in total. Hadley Kim MD [address] [place] [address], [facility] [address], [place], [address], [facility] [employer] 11/21/2023 15:55:27 4 text/html The patient returns with a new problem today. She is complaining of right foot pain along the lateral border below the base of the 5th metatarsal somewhat into the plantar surface of the foot as well. Denies any specific trauma or injury. She states typically she walks several miles a day for exercise but recently was having some issues with her left knee she was found by Dr. Kim to have a small tear at the posterior horn near the root medial meniscus. She also had what appeared to be a insufficiency stress fracture of the medial tibial plateau. She has been going through nonsurgical treatment with therapy. She states during the therapy exercises she is started to develop some right foot pain. She denies any specific trauma or injury to the right foot. She states she does have a history of flat feet and about a year ago saw punchboard assembler and had arch supports made for her feet. She has had no issues with her feet otherwise until recently. She has been doing therapy for the past several weeks and this is when the pain started to develop. Denies any effusion or swelling no ecchymosis no weakness or loss of function. She states she does have some chronic numbness in the foot due to previous multiple back surgeries and some other medical issues. The numbness is not complete denies any weakness in the foot but has never had this type of pain. She comes in today for initial evaluation and treatment. 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 CAROLYN Thornton [address] [facility], [facility] [address], [place], [address], [facility] [employer] 01/13/2024 12:28:35 OBGyn Episode No OBEpisode recorded.
--- OUTSIDE RECORDS SUMMARY | 2025-03-05 08:03 | XMS_ITS | Clinical Summary ---
[facility] Address [address] [facility] [place] [address] Care Team Providers Care Jump Iron Machine Presser Name Role Phone Jeison Calloway MD Unavailable [phone] Margarito Moreno MD Unavailable [phone] Elaine Nunn SPINDLE FRAME CARVER Primary Care Provider [phone] Wil Mendez MD Unavailable [phone] Allergies Active Allergy Reactions Criticality Noted Date [...] (09/18/2019): Added automatically from request for surgery [id number] Rectosigmoiditis 05/24/2012 Acute postoperative abdominal pain Immunizations Immunization Administration Dates Next Due Influenza, Quadrivalent, Spl it, Preservative Free, Intramuscular 09/21/2019 Surgical History Surgery Date Site/Laterality Comments COLOSTOMY CLOSURE COLONOSCOPY POUCHOSCOPY 10/25/2020 - 10/24/2021 TOTAL COLECTOMY 1990s ABDOMINAL ADHESION SURGERY 1993, 1994 BACK SURGERY 10/25/2001 - 10/24/2002 lumbar discectomy x 2 TONSILLECTOMY 10/25/1979 - 10/24/1980 POUCHOSCOPY 05/14/2021 Extensive adhesiolysis and pouchoscopy Medical History Medical History Date Comments Ulcerative colitis (HCC) Asthma Arthritis Anemia Sleep apnea Covid-19 08/2020 Family History Medical History Relation Name Comments No Known Problems Mother Inflammatory bowel disease Neg Hx Relation Name Status Comments Mother Social History Tobacco Use Types Packs/Day Years [...] on file 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 Gender Identity Female 05/08/2021 7:46 PM CDT Sexual Orientation Straight 05/08/2021 7: 56 PM CDT Obstetrics History Last Filed Vital Signs Vital Sign Reading [...] 08/17/2024 11:15 AM CDT Plan of Treatment Health Maintenance Due Date Last Done Comments Breast Cancer Screening-Mammogram 1965 Cervical Cancer Screening 1965 Colon Cancer Screening-Colonoscopy 1965 Depression Screening 1965 Hepatitis C Screening 1965 DTaP/Tdap/Td Vaccine (1 - Tdap) 1976 Hepatitis B Screening 1983 Regular Well Visit/Exam 18-64 1983 Pneumococcal vaccine <65 (1 of 2 - PCV) 1984 Zoster Vaccine (1 of 2) 2015 Influenza Vaccine (#1) 2024 09/21/2019, 2016 Insurance [facility] ANTHEM ACCESS BLUE ACCESS OOS BLUE ACCESS OOS [place] PREFERRED [facility] [address] OOS Advance Directives For more information, please contact: [phone] * Full Code (Latest Code Status on [...] 4:41 PM 09/21/2019 4:14 PM Care Teams Jump Iron Machine Presser Relationship Specialty Start Date End Date Elaine Nunn SPINDLE FRAME CARVER [address] [place], [place] [id number] PCP - General Nurse Practitioner 08/17/24 Jeison Calloway MD Vending Machine Coin Collector Gastroenterology 10/31/19 Margarito Moreno MD [address] [facility] [id number] [place] [address] Consulting Physician General Surgery 06/02/22 Wil Mendez MD [address] [facility] [phone] [place] [address] Consulting Physician Colon and Rectal Surgery 08/20/24
[2025-03-05 08:40] LABS: Basophils Absolute Auto 0.1 K/mm3 (0.0-0.1); Basophils Percent Auto 1.3 % (0.2-1.2); Eosinophils Absolute Auto 0.4 K/mm3 (0-0.3); Eosinophils Percent Auto 6.5 % (0-4.4); Hemoglobin 13.1 g/dL (12.0-15.0); Immature Granulocyte Absolute 0.02 K/mm3 (0.00-0.031); Immature Granulocyte Percent A 0.4 % (0-0.5); Lymphocytes Absolute Auto 1.54 K/mm3 (0.9-3.2); Lymphocytes Percent Auto 27.7 % (18.3-44.2); Mean Corpuscular Hemoglobin 28.9 pg (26-34); Mean Corpuscular Volume 90.3 fl (80-100); Mean Platelet Volume 9.9 fl (7.4-10.4); Monocytes Absolute Auto 0.5 K/mm3 (0.1-0.6); Monocytes Percent Auto 8.3 % (2.6-8.5); Neutrophils Absolute Auto 3.1 K/mm3 (1.3-6.7); Neutrophils Percent Auto 55.8 % (45.5-73.1); Platelet Count Result 267 k/mm3 (150-375); Red Blood Count 4.54 M/mm3 (4.2-5.4); Red Cell Distribution Width 13.5 % (11.5-14.5); White Blood Count 5.6 K/mm3 (4.5-10.0)
[2025-03-05 08:48] LABS: Hemoglobin A1C 5.6 % (<5.7)
[2025-03-05 08:51] LABS: Alanine Aminotransferase 34 U/L (6-35); Albumin Level 4.4 g/dL (3.5-5.1); Alkaline Phosphatase 79 U/L (38-126); Anion Gap 8 mmol/L (4-12); Aspartate Amino Transferase 43 U/L (14-36); Bilirubin,Total 0.4 mg/dL (0.2-1.3); Blood Urea Nitrogen 17 mg/dL (7-17); Calcium 9.1 mg/dL (8.4-10.2); Carbon Dioxide 28 mmol/L (22-30); Chloride 105 mmol/L (98-107); Cholesterol 202 mg/dL (0-200); Estimated Glomerular Filt Rate > 60; Glucose 106 mg/dL (65-110); HDL Direct 108 mg/dL; Potassium 4.1 mmol/L (3.4-5.0); Sodium 141 mmol/L (137-145); Triglycerides 62 mg/dL (<150)
[2025-03-05 09:00] LABS: Iron 72 ug/dL (37-170)
[2025-03-05 09:02] LABS: LDL Cholesterol Direct 65 mg/dL
[2025-03-05 09:09] LABS: Percent Iron Saturation 23 % (20-50)
[2025-03-05 09:31] LABS: Vitamin D 25 Hydroxy 36.9 ng/mL
[2025-03-05 09:57] LABS: Folic Acid 11.8 ng/mL (2.76->20)
[2025-03-08 10:20] LABS: Vitamin B6 9.9 ng/mL (2.1-21.7)
[2025-03-08 11:12] LABS: Vitamin B1 14 nmol/L (8-30)
== END 2025-03-05 08:00 | disposition home or self-care (01) ==
LOC: ANHLAB 08:00
PROVIDERS: PCP Nurse Practitioner Family; Visit Provider Nurse Practitioner Family
DX: K51.90 Ulcerative colitis, unspecified, without complications (principal); M19.90 Unspecified osteoarthritis, unspecified site; G62.9 Polyneuropathy, unspecified; J45.909 Unspecified asthma, uncomplicated; Z90.49 Acquired absence of other specified parts of digestive tract
CPT/HCPCS: 36415; 80053; 80061; 82306; 82607; 82728; 82746; 83036; 83540; 83550; 84207; 84252; 84425; 85025